=== PATIENT | female | born 1980 | race Hispanic/Latino ===

== ENCOUNTER 2017-10-27 00:50 | Emergency (ER) | payer OTHER ==
[~2017-10-27] VITALS: Ht 160 cm; Wt 123.8 kg
[~2017-10-27 00:50] MED LIST: ADVAIR HFA120 INHALA IH; AMPHETAMINE SAL15 MG PO; AVIANE1 EACH PO; FERROUS SULFAT325 MG PO; LEVOFLOXACIN750 MG PO; MEGACE40 MG PO; PANTOPRAZOLE SO40 MG PO; PREDNISONE10 MG PO; VENTOLIN HFA18 GM IH
[2017-10-27 01:23] LABS: HEMATOCRIT 32.7 % (36.0-46.0); HEMOGLOBIN 10.8 G/DL (11.9-15.5); MCH 27.8 PG (29.0-34.0); MCV 84.1 FL (83-99); PLATELET COUNT 194 K/uL (156-360); RBC DIS.WIDTH-CV 13.3 % (11.8-14.6); RBC DIS.WIDTH-SD 40.3 % (39-53); RED BLOOD COUNT 3.89 M/uL (3.80-5.20); WHITE BLOOD COUNT 9.7 K/uL (4.1-10.2)
[2017-10-27 05:05] VITALS: BP 133/85
== END 2017-10-27 05:07 | disposition home or self-care (01) ==
LOC: EME 00:50
DX: N93.8 Other specified abnormal uterine and vaginal bleeding (principal); E86.0 Dehydration; K21.9 Gastro-esophageal reflux disease without esophagitis
CPT/HCPCS: 76856; 81003; 84702; 85027; 86850; 86900; 86901; 99281; 99284; J7040

== ENCOUNTER 2017-11-16 04:59 | Day surgery (SDC) | payer OTHER ==
[~2017-11-16] VITALS: Ht 5.1 cm; Wt 122.0 kg
[~2017-11-16 04:59] MED LIST changes: +ASCORBIC ACID500 M3 PO
[2017-11-16 06:07] VITALS: BP 138/72
[2017-11-16 09:50] VITALS: BP 139/81
[2017-11-16 10:37] VITALS: BP 128/80
== END 2017-11-16 10:35 | disposition home or self-care (01) ==
LOC: SDC
PROC: 0UDB7ZX Extraction of Endometrium, Via Natural or Artificial Opening, Diagnostic (ICD-10-PCS; principal; 2017-11-16)
PROC: 0UB98ZX Excision of Uterus, Via Natural or Artificial Opening Endoscopic, Diagnostic (ICD-10-PCS; principal; 2017-11-16)
PROC: 0UH97HZ Insertion of Contraceptive Device into Uterus, Via Natural or Artificial Opening (ICD-10-PCS; principal; 2017-11-16)
DX: N84.0 Polyp of corpus uteri (principal); N93.8 Other specified abnormal uterine and vaginal bleeding; N80.0 Endometriosis of uterus; D50.0 Iron deficiency anemia secondary to blood loss (chronic); J45.909 Unspecified asthma, uncomplicated; Z87.891 Personal history of nicotine dependence; Z30.8 Encounter for other contraceptive management
CPT/HCPCS: 84702; 86850; 86900; 86901; 88305; J0131; J0330; J0690; J1100; J1170; J1885; J2250; J2405; J3010